=== PATIENT | male | born 1985 | race Caucasian/White ===

== ENCOUNTER 2017-10-26 15:32 | Emergency (ER) | payer BC ==
--- NOTE | 2017-10-26 16:43 | EDM.PDOC ---
ED HPI GENERAL MEDICAL PROBLEM - General Chief Complaint: Lower Extremity Injury/Pain Stated Complaint: PT SPOKE TO NURSE Time Seen by Provider: 10/26/17 15:59 Source of Information: Reports: Patient History Limitations: Reports: No Limitations - History of Present Illness INITIAL COMMENTS - FREE TEXT/NARRATIVE: HISTORY AND PHYSICAL: History of present illness: Patient is a 32-year-old male who presents to the emergency room today with complaints of left ankle pain. He states couple years ago he did have a similar type pain in his left great toe which she was told could have been gout. He reports he was doing some Internet searching and believes that his symptoms and he dispose factors "makes me a perfect candidate". Recently he has eaten a large quantities of steak, crab and alcohol. He denies any recent injury or trauma to the affected extremity. Increased pain and pressure with weightbearing. Review of systems: As per history of present illness and below otherwise all systems reviewed and negative. Past medical history: As per history of present illness and as reviewed below otherwise noncontributory. Surgical history: As per history of present illness and as reviewed below otherwise noncontributory. Social history: No reported history of drug or alcohol abuse. Family history: As per history of present illness and as reviewed below otherwise noncontributory. Physical exam: General: Developed and well-nourished 32-year-old male. Alert and oriented. Nontoxic appearing and in no acute distress. HEENT: Atraumatic, normocephalic, pupils equal and reactive bilaterally, negative for conjunctival pallor or scleral icterus, mucous membranes moist, throat clear, neck supple, nontender, trachea midline. No drooling or trismus noted. No meningeal signs Lungs: Clear to auscultation, breath sounds equal bilaterally, chest nontender. Heart: S1S2, regular rate and rhythm without overt murmur Abdomen: Soft, nondistended, nontender. Negative for masses or hepatosplenomegaly. Negative for costovertebral tenderness. Pelvis: Stable nontender. Genitourinary: Deferred. Rectal: Deferred. Skin: Intact, warm, dry. No errythema or soft tissue swelling noted. No lesions or rashes noted. Extremities: Atraumatic, moves all extremities per self without difficulty or deficets. He has mild pain with palpation to the left lateral malleolus. He is negative for cords or calf pain. Neurovascular unremarkable. Neuro: Awake, alert, oriented. Cranial nerves II through XII unremarkable. Cerebellum unremarkable. Motor and sensory unremarkable throughout. Exam nonfocal. Notes: Xray is normal. Uric acid is elevated. We'll prescribe colchicine, prednisone and indomethacin. Medication education was given. Encouraged him to follow up with his primary care provider for further evaluation and management. He voices understanding and is agreeable to plan of care. He denies any further questions at this time. Diagnostics: Uric Acid, Xray Left Ankle Therapeutics: Toradol Impression: Gout Plan: 1. Please take your medications as prescribed. Do not take any additional NSAID such as Aleve or ibuprofen while taking these medications. 2. Please follow up to see her primary care provider in the next 1-2 days. Return to the ED as needed and as discussed. Definitive disposition and diagnosis as appropriate pending reevaluation and review of above. Duration: Day(s): Location: Reports: Lower Extremity, Left Left Ankle Pain Score (Numeric/FACES): 6 - Related Data Allergies Allergy/AdvReac Type Severity Reaction Status Date / Time No Known Allergies Allergy Verified 10/26/17 15:58 Home Meds: Home Meds . [No Known Home Meds] 10/26/17 [History] Past Medical History - Past Health History Medical/Surgical History: Denies Medical/Surgical History - Infectious Disease History Infectious Disease History: Reports: None Social & Family History - Family History Family Medical History: Noncontributory - Tobacco Use Smoking Status *Q: Current Some Day Smoker Years of Tobacco use: 20 Packs/Tins Daily: 0 - Caffeine Use Caffeine Use: Reports: Energy Drinks, Soda - Alcohol Use Days Per Week of Alcohol Use: 7 Number of Drinks Per Day: 5 Total Drinks Per Week: 35 Date of Last Drink: 10/25/17 - Recreational Drug Use Recreational Drug Use: No Review of Systems - Review of Systems Review Of Systems: ROS reveals no pertinent complaints other than HPI. ED EXAM, GENERAL - Physical Exam Exam: See Below (See dictation) Course - Vital Signs Last Recorded V/S: Last Vital Signs Temp 99.2 F 10/26/17 15:59 Pulse 91 10/26/17 15:59 Resp 16 10/26/17 15:59 BP 158/85 H 10/26/17 15:59 Pulse Ox 100 10/26/17 15:59 - Orders/Labs/Meds Orders: Active Orders 24 hr Category Date Time Status Ankle Min 3V Lt [CR] Stat Exams 10/26/17 16:10 Taken Labs: Laboratory Tests 10/26/17 Range/Units 16:25 Uric Acid 7.6 H (2.6-7.2) mg/dL Departure - Departure Time of Disposition: 17:16 Disposition: Home, Self-Care 01 Clinical Impression: Gout Qualifiers: Gout site: ankle Gout etiology: unspecified cause Chronicity: acute Laterality : left Qualified Code(s): M10.9 - Gout, unspecified - Discharge Information Instructions: Gout, [id number] Referrals: PCP,None [Primary Care Provider] - Forms: ED Department Discharge Additional Instructions: The following information is given to patients seen in the emergency department who are being discharged to home. This information is to outline your options for follow-up care. We provide all patients seen in our emergency department with a follow-up referral. The need for follow-up, as well as the timing and circumstances, are variable depending upon the specifics of your emergency department visit. If you don't have a primary care physician on staff, we will provide you with a referral. We always advise you to contact your personal physician following an emergency department visit to inform them of the circumstance of the visit and for follow-up with them and/or the need for any referrals to a consulting specialist. The emergency department will also refer you to a specialist when appropriate. This referral assures that you have the opportunity for follow-up care with a specialist. All of these measure are taken in an effort to provide you with optimal care, which includes your follow-up. Under all circumstances we always encourage you to contact your private physician who remains a resource for coordinating your care. When calling for follow-up care, please make the office aware that this follow-up is from your recent emergency room visit. If for any reason you are refused follow-up, please contact the [facility] at and asked to speak to the emergency department charge nurse. [facility] [address] [place] [id number] 1. Please take your medications as prescribed. Do not take any additional NSAID such as Aleve or ibuprofen while taking these medications. 2. Please follow up to see her primary care provider in the next 1-2 days. Return to the ED as needed and as discussed. - My Orders Last 24 Hours: My Active Orders 10/26/17 16:10 Ankle Min 3V Lt [CR] Stat - Assessment/Plan Last 24 Hours: My Active Orders 10/26/17 16:10 Ankle Min 3V Lt [CR] Stat
--- NOTE | 2017-10-27 07:50 | CR ---
EXAM DATE: 10/26/17 PATIENT'S AGE: 32 Patient: JAMI DAWSON Facility: [place], [place] Site . Site : 1985 Study: XRay Extremity Left Ankle [id number] 4:49:58 PM Ordering Physician: Doctor Payan Final Report: INDICATION: ANKLE PAIN LEFT ANKLE No fracture, dislocation, or destructive lesion of bone is seen. No significant arthritic changes or soft tissue abnormalities are identified. IMPRESSION: Negative left ankle radiographs. NOA CAMARGO MD [facility] Dictated by: To Camargo MD @ 10/26/2017 17:01:49 (Electronic Signature) Report Signed by Proxy. [facility]
== END 2017-10-26 17:30 | disposition home or self-care (01) ==
LOC: MW.ED 15:32
DX: M10.9 Gout, unspecified (principal); F17.210 Nicotine dependence, cigarettes, uncomplicated
CPT/HCPCS: 36415; 73610-26-LT; 73610-LT; 84550; 99283